=== PATIENT | female | born 1935 | race Caucasian/White ===

== ENCOUNTER → 2016-11-06 | Outpatient (CLI) | payer MEDICARE, OTHER ==
[~2016-11-06] MED LIST: ASPIR 8181 MG PO; COQ-10100 MG PO; FISH OIL300 MG PO; LEVOTHROID (SY88 MCG PO; MAGNESIUM250 M1 PO; OCUVITE EYE HE1 EACH PO; PEPCID20 MG PO; PRILOSEC20 MG PO; THERA-VITE W/ B1 TAB PO; VITAMIN C250 M1 PO; VITAMIN D250000 UNIT PO; ZOCOR20 MG PO
== END | disposition disaster alternative care site (69) ==
LOC: GRAD 11:09
DX: R13.10 Dysphagia, unspecified (principal); K22.5 Diverticulum of esophagus, acquired
CPT/HCPCS: G8996; G8997; G8998

== ENCOUNTER → 2017-01-29 | Day surgery (SDC) | payer MEDICARE, OTHER ==
[~2017-01-29] VITALS: Ht 167.6 cm; Wt 79.6 kg
== END | disposition disaster alternative care site (69) ==
LOC: GPOC 01-26 13:00 → GEND 07:45 → GPOC 13:00
PROC: 0DJ08ZZ Inspection of Upper Intestinal Tract, Via Natural or Artificial Opening Endoscopic (ICD-10-PCS; principal; 2017-01-29)
DX: K22.5 Diverticulum of esophagus, acquired (principal); C49.A1 Gastrointestinal stromal tumor of esophagus; K44.9 Diaphragmatic hernia without obstruction or gangrene; K21.9 Gastro-esophageal reflux disease without esophagitis; E78.00 Pure hypercholesterolemia, unspecified; Z98.51 Tubal ligation status; Z96.652 Presence of left artificial knee joint; Z98.890 Other specified postprocedural states; Z98.41 Cataract extraction status, right eye; Z98.42 Cataract extraction status, left eye; Z79.82 Long term (current) use of aspirin; Z79.899 Other long term (current) drug therapy; Z90.710 Acquired absence of both cervix and uterus
CPT/HCPCS: J2001; J7030